=== PATIENT | male | born 1960 | race Caucasian/White ===

== ENCOUNTER 2022-12-02 10:57 | Emergency (ER) | payer OTHER ==
[2022-12-02] MEDS ORDERED: Lidocaine 1% 5 ML VIAL INJECT ONE (11:37)
[2022-12-02] MEDS ORDERED: Bacitracin Oint 1 GM U/D Packet TOP ONE (11:54)
[2022-12-02] MEDS ORDERED: Diphtheria,Pertussis(Acell),Tetanus Vaccine 0.5 ML Syringe IM ONE (11:54)
== END 2022-12-02 12:23 | disposition home or self-care (01) ==
LOC: JP.ED 10:57
DX: S60.352A Superficial foreign body of left thumb, initial encounter (principal); S60.451A Superficial foreign body of left index finger, initial encounter; Z23 Encounter for immunization; W45.8XXA Other foreign body or object entering through skin, initial encounter
CPT/HCPCS: 90471; 90715; 99282-25